=== PATIENT | male | born 1970 | race African-American/Black ===

== ENCOUNTER 2023-01-19 19:59 | Emergency (ER) | payer OTHER ==
[~2023-01-19] VITALS: Ht 182.9 cm; Wt 97.5 kg
[2023-01-19] MEDS ORDERED: ONDANSETRON HCL 4MG/2ML INJ IV NR (20:25)
[2023-01-19] MEDS ORDERED: MORPHINE SULFATE 4 MG/ML CPJ (NOT FOR IM USE) IV NR (20:30)
[2023-01-19 21:11] LABS: BASOPHILS % 0.2 % (0.0-2.0); EOSINOPHILS % 0.1 % (0.0-5.0); HEMATOCRIT. 43.8 % (42.0-52.0); HEMOGLOBIN. 13.6 g/dL (14.0-18.0); LYMPHOCYTES % 10.9 % (20.0-50.0); MEAN CORPUSCULAR HEMOGLOBIN 23.2 pg (28.0-32.0); MEAN CORPUSCULAR VOLUME 74.9 fL (80.0-94.0); NEUTROPHILS % 82.8 % (40.0-76.0); RED BLOOD CELL COUNT 5.85 mill/uL (4.7-6.1); RED CELL DISTRIBUTION WIDTH 17.7 % (11.6-14.6); WHITE BLOOD COUNT 15.4 x1000/uL (4.5-11.0)
[2023-01-19 21:15] LABS: DIFFERENTIAL COMMENT 1
[2023-01-19 21:16] LABS: ADD RBC MORPHOLOGY YES
[2023-01-19 21:19] LABS: PROTHROMBIN TIME 10.5 sec (9.6-11.0)
[2023-01-19 21:25] LABS: ALANINE AMINOTRANSFERASE 35 IU/L (10-49); ALBUMIN 4.5 g/dL (3.2-4.8); ASPARTATE AMINOTRANSFERASE 22 IU/L (<34); BILIRUBIN TOTAL 0.5 mg/dL (0.1-1.0); CARBON DIOXIDE 29 mEq/L (21-32); CHLORIDE 105 mEq/L (98-107); CREATININE 1.3 mg/dL (0.6-1.3); GLUCOSE 115 mg/dL (70-105); POTASSIUM 3.7 mEq/L (3.5-5.1); PROTEIN TOTAL 6.9 g/dL (6.0-8.3); SODIUM 143 mEq/L (136-145); UREA NITROGEN BLOOD 13 mg/dL (9-23)
[2023-01-19 21:41] LABS: PLATELET ESTIMATE NORMAL
[2023-01-19 21:42] LABS: ANISOCYTOSIS 1+; HYPOCHROMASIA 1+; MICROCYTOSIS 2+; OVALOCYTES 1+
[2023-01-19 21:43] LABS: MEAN PLATELET VOLUME 9.7 fl (7.4-10.4); PLATELET 250 x1000/uL (130-400)
[2023-01-19] MEDS ORDERED: KETAMINE HCL 50 MG/ML 10ML IV ONE (21:45)
[2023-01-19] MEDS ORDERED: ACET-2708 MT (23:02)
[2023-01-19] MEDS ORDERED: IBUP-1523 MT (23:03)
[2023-01-20 00:25] VITALS: BP 104/70; PULSE 65; RESP 12; TEMP 98.2; O2SAT 98
== END 2023-01-20 00:34 | disposition home or self-care (01) ==
LOC: ER 19:59
DX: S82.891A Other fracture of right lower leg, initial encounter for closed fracture (principal); K21.9 Gastro-esophageal reflux disease without esophagitis; X58.XXXA Exposure to other specified factors, initial encounter; Y93.89 Activity, other specified; Y92.89 Other specified places as the place of occurrence of the external cause; Y99.8 Other external cause status
CPT/HCPCS: 80053; 85025; 85610; 36415; 73600; 27818; 96374; 96375; 99152; 99285; J3490; J2405; J2270; Z7610; 27840